=== PATIENT | male | born 1960 | race Caucasian/White ===

== ENCOUNTER → 2020-01-12 10:43 | Outpatient (BNVA) | payer OTHER, SELFPAY | PROVIDERS: PCP Nurse Practitioner Family; Referring Provider Nurse Practitioner Family; Visit Provider Physician Assistant | DX: K52.9 Noninfective gastroenteritis and colitis, unspecified (principal) | CPT/HCPCS: 99212 ==

== ENCOUNTER → 2020-02-22 09:40 | Outpatient (BNVA) | payer OTHER, SELFPAY | PROVIDERS: PCP Nurse Practitioner Family; Visit Provider Internal Medicine Gastroenterology | DX: Z76.89 Persons encountering health services in other specified circumstances (principal) ==

== ENCOUNTER → 2020-04-20 09:58 | Outpatient (BNVA) | payer OTHER, SELFPAY | PROVIDERS: PCP Nurse Practitioner Family; Visit Provider Physician Assistant ==

== ENCOUNTER → 2020-05-26 10:03 | Outpatient (BNVA) | payer OTHER, SELFPAY | PROVIDERS: PCP Nurse Practitioner Family; Visit Provider Internal Medicine Gastroenterology ==

== ENCOUNTER → 2020-06-12 10:11 | Outpatient (BNVA) | payer OTHER, SELFPAY | PROVIDERS: Visit Provider Physician Assistant ==

== ENCOUNTER 2020-06-30 12:25 | Outpatient (REF) | payer OTHER, SELFPAY ==
[2020-06-30 13:15] LABS: MANUAL DIFF FLAG NO
[2020-06-30 13:18] LABS: Basophils Percent Auto 0.2 % (0-2); Eosinophils Absolute Auto 0.1 X10*3/uL (0.0-0.4); Hematocrit 41.3 % (42-52); Hemoglobin 14.2 g/dl (14.0-18.0); Imm Gran Abs Auto 0.07 X10*3/uL (0.00-0.03); Imm Gran Pct Auto 0.8 % (0.0-0.4); Lymphocytes Absolute Auto 2.6 X10*3/uL (1.2-4.9); Lymphocytes Percent Auto 27.5 % (20-40); Mean Corpuscular HGB Conc 34.4 g/dl (31.0-36.0); Mean Corpuscular Volume 90.2 fL (80-98); Mean Platelet Volume 11.2 fL (9.4-12.4); Monocytes Absolute Auto 0.7 X10*3/uL (0.1-1.2); Monocytes Percent Auto 7.8 % (2-11); Neutrophils Absolute Auto 5.8 X10*3/uL (2.0-8.3); Neutrophils Percent Auto 62.7 % (45-73); Platelet Count 181 X10*3/uL (160-400); Red Blood Count 4.58 X10*6/uL (4.60-5.80); Red Cell Distribution Width 14.1 % (11.0-16.0); White Blood Count 9.3 X10*3/uL (4.8-10.8)
[2020-06-30 14:05] LABS: Thyroid Stimulating Hormone 0.54 uIU/mL (0.32-4.0)
[2020-06-30 14:06] LABS: Alanine Aminotransferase 29 U/L (0-40); Alkaline Phosphatase 106 U/L (39-117); Anion Gap 16 (12-20); Aspartate Amino Transferase 41 U/L (5-37); Bilirubin Total 0.5 mg/dL (0.0-1.0); Blood Urea Nitrogen 22 mg/dL (9-16); C Reactive Protein 0.08 mg/dL (< or = 0.50); Calcium 8.5 mg/dL (8.4-10.2); Carbon Dioxide 21 mmol/L (22-29); Chloride 109 mmol/L (96-108); Estimated Glomerular Filt Rate 57; Glucose Random 125 mg/dL (60-115); Lipase 37 U/L (8-78); Potassium 4.1 mmol/L (3.3-5.1); Sodium 142 mmol/L (135-145)
== END 2020-06-30 12:26 | disposition home or self-care (01) ==
LOC: HO.LAB 12:25
PROVIDERS: PCP Nurse Practitioner Family; Visit Provider Physician Assistant
DX: K52.9 Noninfective gastroenteritis and colitis, unspecified (principal); R74.01 Elevation of levels of liver transaminase levels; R10.11 Right upper quadrant pain; K59.09 Other constipation
CPT/HCPCS: 36415; 80053; 83690; 84443; 85025; 86140

== ENCOUNTER 2020-07-03 14:24 | Outpatient (REF) | payer OTHER, SELFPAY ==
--- NOTE | ~2020-07-03 | CT_ITS ---
EXAMINATION: CT ABDOMEN AND PELVIS WITH CONTRAST CLINICAL INFORMATION: Alcohol abuse COMPARISON: Previous abdominal ultrasound April 2019 TECHNIQUE: Multidetector volumetric images were obtained from the superior aspect of the liver through the pubic symphysis following administration 85 mL of Omnipaque 350 intravenous contrast. Sagittal and coronal reformatted images were obtained on the technologist's workstation. Oral contrast: Yes This CT examination was performed using dose optimization techniques as appropriate, variously including the following: *Automated exposure control *Adjustment of mA and/or kV according to patient size (this includes techniques or standardized protocols for targeted exams where dose is matched to indication/reason for exam; i.e. extremities or head) *Use of iterative reconstruction technique DLP: 268 mGy-cm FINDINGS: LUNG BASES: The visualized lung bases are unremarkable. LIVER, GALLBLADDER, AND BILIARY TREE: The liver is slightly low in attenuation suggestive of fatty infiltration. No evidence of cirrhosis is seen. There is a small 4 mm low-attenuation lesion in the junction of the medial segment of the left lobe and anterior segment of the right lobe axial image 15 series 3. Difficult to characterize due to small size but may represent a cyst. There is a 5 x 10 mm low-attenuation lesion in the right lobe of the liver near the gallbladder axial image 22 series 3. Hounsfield units are -2 suggestive of fat. This may represent invagination of fat along vessel. No suspicious liver lesion is seen. The gallbladder is normal. There is no biliary duct dilatation. PANCREAS: Unremarkable. SPLEEN: Unremarkable. ADRENAL GLANDS: Unremarkable. KIDNEYS AND URETERS: There are 3 left renal cysts, largest measuring 3 cm in the lower pole. There is a small 5 mm low-attenuation lesion in the lower pole of the right kidney also probably representing a cyst. The kidneys are otherwise unremarkable. BLADDER: Unremarkable. GASTROINTESTINAL TRACT: There is diverticulosis of the colon. No evidence of diverticulitis is seen. Small and large bowel is otherwise unremarkable. The stomach is not optimally distended. The ABDOMINAL WALL: No significant hernia is appreciated. LYMPH NODES: Normal. VASCULAR: There is evidence of severe atherosclerotic disease. Significant plaque seen in the lower abdominal aorta. No aneurysm is seen. PELVIC VISCERA: Unremarkable. OSSEOUS STRUCTURES: There are mild degenerative changes of the spine. CT/CT abdomen pelvis w con IMPRESSION: Low-attenuation liver suggestive of mild fatty infiltration. No evidence of cirrhosis. 2 small liver lesions, question representing a small cyst and area of fat. No suspicious liver lesion seen. Left renal cysts. Diverticulosis of the colon. Severe atherosclerotic disease.
[2020-07-03] MEDS: iohexoL 350 MG/ML 100 ML INFUS..BTL IV (15:14)
[2020-07-04 09:48] LABS: CDIFF Ag Negative (Negative); CDIFF Internal ctrl Dots and bkg OK (V); CDiff Toxin Negative (Negative)
[2020-07-09 21:46] LABS: Calprotectin, Fecal 193 mcg/g
[2020-07-12 01:26] LABS: Pancreatic Elastase-1 262 mcg/g
== END 2020-07-03 14:25 | disposition home or self-care (01) ==
LOC: HO.CT 14:24
PROVIDERS: Visit Provider Physician Assistant
DX: F10.10 Alcohol abuse, uncomplicated (principal); K52.9 Noninfective gastroenteritis and colitis, unspecified; R10.9 Unspecified abdominal pain
CPT/HCPCS: 74177; 82656; 83993; 87045; 87046; 87177; 87209; 87324; 87449; Q9967

== ENCOUNTER → 2020-07-11 13:41 | Outpatient (BNVA) | payer OTHER, SELFPAY | PROVIDERS: PCP Nurse Practitioner Family; Visit Provider Dietitian, Registered | DX: K31.84 Gastroparesis (principal) | CPT/HCPCS: 97802 ==

== ENCOUNTER → 2020-07-12 14:36 | Outpatient (BNVA) | payer OTHER, SELFPAY | PROVIDERS: PCP Nurse Practitioner Family; Visit Provider Physician Assistant ==

== ENCOUNTER → 2020-08-22 11:36 | Outpatient (BNVA) | payer OTHER, SELFPAY | PROVIDERS: PCP Nurse Practitioner Family; Visit Provider Dietitian, Registered | DX: K31.84 Gastroparesis (principal) | CPT/HCPCS: 97803 ==

== ENCOUNTER → 2020-08-29 11:36 | Outpatient (BNVA) | payer OTHER, SELFPAY | PROVIDERS: Visit Provider Physician Assistant ==

== ENCOUNTER → 2020-09-15 10:56 | Outpatient (BNVA) | payer OTHER, SELFPAY | PROVIDERS: PCP Nurse Practitioner Family; Visit Provider Internal Medicine Gastroenterology ==

== ENCOUNTER → 2021-03-19 10:51 | Outpatient (BNVA) | payer OTHER, SELFPAY | PROVIDERS: PCP Nurse Practitioner Family; Visit Provider Internal Medicine Gastroenterology | DX: K31.84 Gastroparesis (principal) | CPT/HCPCS: 99212 ==

== ENCOUNTER → 2021-05-28 13:31 | Outpatient (BNVA) | payer OTHER, SELFPAY | PROVIDERS: PCP Nurse Practitioner Family; Visit Provider Physician Assistant | DX: K31.84 Gastroparesis (principal); K52.9 Noninfective gastroenteritis and colitis, unspecified | CPT/HCPCS: 99212 ==

== ENCOUNTER → 2022-08-26 12:05 | Outpatient (BNVA) | payer OTHER, SELFPAY | PROVIDERS: PCP Nurse Practitioner Family; Visit Provider Physician Assistant | DX: K58.1 Irritable bowel syndrome with constipation (principal); K31.84 Gastroparesis | CPT/HCPCS: 99212 ==

== ENCOUNTER 2022-11-11 14:01 | Outpatient (REF) | payer OTHER, SELFPAY ==
--- NOTE | ~2022-11-11 | XR_ITS ---
EXAMINATION: XR LUMBOSACRAL SPINE WITH OBLIQUES CLINICAL INFORMATION: Spondylosis without myelopathy. COMPARISON: CT abdomen and pelvis July 2020. TECHNIQUE: AP, both oblique, and lateral views of the lumbar spine. Lateral view of the lumbosacral junction. FINDINGS: Vertebral bodies normally align. Multilevel degenerative disc changes manifested by endplate osteophytes without disc space narrowing. There are bilateral pars defects noted at L5 better visualized on the prior CT. The partially visualized pelvis including sacroiliac joints is normal. Vascular stent noted on the left in the pelvis. Prominent arterial calcification of the aorta and iliac vessels. XR/XR lumbar spine 4V min IMPRESSION: 1. Mild multilevel spondylosis of lumbosacral spine. 2. Bilateral L5 pars defects better visualized on prior CT.
--- NOTE | ~2022-11-11 | XR_ITS ---
EXAMINATION: XR BILATERAL HIPS WITH AP PELVIS CLINICAL INFORMATION: Pain in right hip. COMPARISON: CT abdomen and pelvis July 2020. TECHNIQUE: AP pelvis and AP and lateral views of each hip. FINDINGS: Right hip: The joint space is normal. Surrounding bone and soft tissues normal. Left hip: Chondrocalcinosis. Joint space normal. Surrounding bone and soft tissues normal. Pelvis: Hips as above. Remaining bone and joints of the pelvis normal. Left-sided vascular stent noted in the upper pelvis. Arterial calcification noted. XR/XR hip BI w PEL1V IMPRESSION: RIGHT HIP: Normal. LEFT HIP: Chondrocalcinosis. PELVIS: Calcific atherosclerotic disease. Vascular stent. Hips as above.
== END 2022-11-11 14:02 | disposition home or self-care (01) ==
LOC: HO.XRAY 14:01
PROVIDERS: PCP Nurse Practitioner Family; Visit Provider Nurse Practitioner Family
DX: M25.551 Pain in right hip (principal); M25.552 Pain in left hip; M47.816 Spondylosis without myelopathy or radiculopathy, lumbar region; M51.36 Other intervertebral disc degeneration, lumbar region; M16.11 Unilateral primary osteoarthritis, right hip
CPT/HCPCS: 72110; 73521; 99212

== ENCOUNTER 2022-11-11 14:01 | Outpatient (AMB) | payer MEDICAID, SELFPAY ==
--- NOTE | 2022-11-11 14:02 | MHC.OFFVIS ---
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 Patient denies any past or recent trauma, injury or falls. Reports upcoming follow up with Dr. Richards, Vascular provider regarding recurrence of left thigh bruising with history of surgical stenting repair after DVT 3-4 years ago. Patient also reports right foot drop, but does not use ankle AFO bracing daily, including today. His back pain is axial and also radiates into bilateral lateral hips, left hip worse than right. Pain is increased with prolonged walking, standing, climbing stairs and changing positions. Pain affects his daily activities and functioning, sleep, mobility, mood and quality of life. Patient reports he does not drive and has been walking long distances most of his past 40 years. Walking has been progressively getting worse for him, especially long distances and uphill walking. Pain is constant and rated at 8-10/10 on average for his back and hips. He also reports buttock pain with prolonged sitting, notably on hard surfaces. Denies any fever, weight loss, abdominal pain, weakness, bladder or bowel dysfunction or saddle anesthesia. Patient was previously seen by PMR in 2017 and Interventional Pain in 2018 with good relief from lumbar KEIRA. Per referral notes, prior imaging showed right hip with joint space narrowing and lumbar spine MRI with mild degenerative changes without evidence for nerve root impingement. Patient was referred to us for potential piriformis injection. Location Lower back and bilateral hips, left hip worse Duration Chronic pain for 4-5 years Characteristics of symptom or complaint Aching, dull, stiffness, spasming, heavy, throbbing Aggravating or associated factors Movements, walking, standing, changing positions Relieving factors Tramadol, gabapentin, heating pad, lidocaine patches, CBD oil Treatment PT- 4-5 years ago, minimally effective; lumbar KEIRA 2018-good relief [facility] Medical History (Updated 11/11/22 @ 20:55 by MCKENZIE Viramontes) History of DVT of lower extremity Right peroneal nerve palsy JOÃO (obstructive sleep apnea) Gouty arthritis Alcoholic gastritis History of fall COPD (chronic obstructive pulmonary disease) History of compression fracture of spine Cervical spine arthritis Bipolar depression Aortic calcification Abdominal pain Irritable Gastritis Hepatitis C Tremors of nervous system Hypothyroid Hypomania Hyperlipidemia Migraine Sleep apnea HTN (hypertension) Chronic diarrhea IBS (irritable bowel syndrome) Anxiety Surgical History Hx of foot operation History of esophagogastroduodenoscopy (EGD) H/O colonoscopy Family History Father COPD (chronic obstructive pulmonary disease) Mother Heart problem Social History (Updated 11/11/22 @ 14:11 by Inessa Liu) Household Members: Friend(s) and Other Household Members Other:: single, lives alone Alcohol intake: current Alcohol intake frequency: a few times a week Alcohol type: hard liquor Patient Tobacco Use Status: Current everyday Tobacco user Cigarette Packs Per Day: 0.5 Cigarettes Per Day: 10 Substance Use Type: Marijuana Current occupational status: disabled Review of Systems Const All systems reviewed & are unremarkable except as noted in HPI and below Physical Exam Vital Signs: Last Vital Signs Pulse 76 11/11/22 14:10 BP 136/92 H 11/11/22 14:10 Pulse Ox 95 11/11/22 14:10 Oxygen Delivery Method Room Air 11/11/22 14:10 BMI result Body Mass Index 20.7 General: Appears afebrile. Alert and oriented. Mood and affect appropriate. Follows and participates in conversation appropriately. Respiratory effort is unlabored. No cough. Able to transition from sit to stand unassisted. General: Yes no CVA tenderness Back/Spine/Pelvis Other: Mild midline tenderness overlying lower lumbar spinous processes. Mild tenderness to palpation around the left and right sacroiliac joints. Lumbar flexion and extension reproduce moderate pain with facet loading positive, L>R. 4/5 left and 5/5 quadriceps strength. Right foot drop, no ankle bracing. Antalgic gait with mild limping. Multiple bruising various healing stages noted left anterior thigh. Normal scarring left groin. 2+ pedal pulses bilaterally. Seated straight leg rise with dorsiflexion negative bilaterally. +1 patellar and absent right and trace left Achilles reflexes bilaterally. Eusebio?s reproduces left lateral hip and groin pain. Piriformis test negative bilaterally. Pelvic compression and Stinchfield tests are negative bilaterally. Mild to moderate groin pain with I/E hip rotations bilaterally, left>right. Back: no CVA tenderness Cervical Spine: cervical ROM normal and No Cervical spine tenderness Thoracic/Lumbar Spine: thoracic and lumbar spine normal to inspection, No Thoracic/lumbar spine scar(s), Lasegue's sign negative, straight leg raise negative bilaterally, pain with thoraco-lumbar ROM, paraspinal muscle tenderness, No thoracic spinal tenderness and lumbar spinal tenderness at L4 and at L5 Pelvis: buttock tenderness bilaterally Sacroiliac joints: bilaterally nontender Results Reviewed Results Reviewed: CT/CT abdomen pelvis w con 07/03/20 OSSEOUS STRUCTURES: There are mild degenerative changes of the spine. Assessment & Plan Assessment & Plan (1) Bilateral hip pain: Code(s): M25.551 - Pain in right hip; M25.552 - Pain in left hip (2) Lumbar spondylosis: Code(s): M47.816 - Spondylosis without myelopathy or radiculopathy, lumbar region (3) Lumbar degenerative disc disease: Code(s): M51.36 - Other intervertebral disc degeneration, lumbar region (4) Osteoarthritis of right hip: Code(s): M16.11 - Unilateral primary osteoarthritis, right hip Plan Lumbar spine and bilateral hip with pelvic view imaging to assess degree of degenerative changes, any subluxation, listhesis or pars defects. Discussed interventional and non-opioid medical treatments for short and half-way pain management with patient. Patient is interested to undergo bilateral hip injections as first steps to alleviate his most troublesome pain generator and improve mobility and increase walking tolerance. He may continue current medication regime of tramadol, gabapentin and lidocaine patches prescribed by his PCP provider. All questions and concerns have been answered and patient agreed with the plan. Follow up for xray results and sooner if needed. Orders: Orders XR hip BI w PEL1V 11/11/22 M25.551 - Pain in right hip, M25.552 - Pain in left hip XR lumbar spine 4V min 09/11/23 M25.551 - Pain in right hip, M25.552 - Pain in left hip, M47.816 - Spondylosis without myelopathy or radiculopathy, lumbar region Coding Level of Care Code New Pt Level 4 (75810) Diagnoses Bilateral hip pain M25.551; M25.552 Lumbar spondylosis M47.816 Lumbar degenerative disc disease M51.36 Osteoarthritis of right hip M16.11
[2022-11-11 14:10] VITALS: BP 136/92; PULSE 76; O2SAT 95; BMI 20.7
== END 2022-11-11 14:41 | disposition home or self-care (01) ==
PROVIDERS: PCP Nurse Practitioner Family; Visit Provider Nurse Practitioner Family
DX: M25.551 Pain in right hip (principal); M25.552 Pain in left hip; M47.816 Spondylosis without myelopathy or radiculopathy, lumbar region; M51.36 Other intervertebral disc degeneration, lumbar region; M16.11 Unilateral primary osteoarthritis, right hip
CPT/HCPCS: 99204

== ENCOUNTER → 2023-01-28 08:14 | Outpatient (BNVA) | payer OTHER, SELFPAY | PROVIDERS: PCP Nurse Practitioner Family; Visit Provider Nurse Practitioner Family | DX: M11.20 Other chondrocalcinosis, unspecified site (principal); M51.36 Other intervertebral disc degeneration, lumbar region; M47.816 Spondylosis without myelopathy or radiculopathy, lumbar region; M25.551 Pain in right hip; M25.552 Pain in left hip | CPT/HCPCS: 99212 ==

== ENCOUNTER 2023-01-28 13:43 | Outpatient (AMB) | payer MEDICAID, SELFPAY ==
[2023-01-28 13:57] VITALS: BP 159/82; PULSE 87; O2SAT 95
--- NOTE | 2023-01-28 13:57 | MHC.OFFVIS ---
Intake Vital Signs 01/28/23 13:57 Height 5 ft 7 in BP 159/82 H Blood Pressure Location Rt brachial Position Sitting Pulse 87 Pulse Source Pulse Oximeter Pulse Oximetry (%) 95 Oxygen Delivery Method Room Air Intake Visit Reasons: Left Thigh Pain - Ref by Padmini Lua/megan Intake Note: Pain today 12/10 Agricultural Research Technician Required: No Accompanied by: Self / Same As Patient Allergies No Known Allergies [No Known Allergies*] Allergy (Verified 01/28/23 13:58) HPI HPI Comments History of Present Illness Details Patient presents today for follow up to discuss lumbar spine and hip xray results. He reports mild low back pain and significant left thigh pain. Patient presents in no acute distress. He sits comfortably in the chair, crossing his legs, right over left, without any discomfort. He reports left thigh pain is constant dull, aching, and intermittently stabbing. His right hip xray is normal and left hip showed chondrocalcinosis. Joint space normal. Surrounding bone and soft tissues normal. Left-sided vascular stent noted in the upper pelvis. Arterial calcification noted. Patient has upcoming evaluation by Rheumatology provider on 02/04/23 for left hip chondrocalcinosis. He reports history of gout and has checked in to local ERs for gout attacks in the past. Patient reports he was on allopurinol for a long time in the past but not taking it currently. He also states he has colchicine at home but not sure if he should restart this. Patient will discuss this with Dr. Thornton on 02/04/23. Denies any fever, joint swelling, erythema, tenderness or rash. He presents with multiple bruising of upper and lower extremities and under left eye. Denies any recent trauma, injury or fall. Patient attributes bruising to taking Aspirin and Plavix on daily basis. PRIOR: Patient is a 62 years old male with complex past medical history including chronic low back pain and left upper extremity DVT with surgical repair presents today for initial evaluation of worsening low back pain and bilateral hip pain. Patient denies any past or recent trauma, injury or falls. Reports upcoming follow up with Dr. Richards, Vascular provider regarding recurrence of left thigh bruising with history of surgical stenting repair after DVT 3-4 years ago. Patient also reports right foot drop, but does not use ankle AFO bracing daily, including today. His back pain is axial and also radiates into bilateral lateral hips, left hip worse than right. Pain is increased with prolonged walking, standing, climbing stairs and changing positions. Pain affects his daily activities and functioning, sleep, mobility, mood and quality of life. Patient reports he does not drive and has been walking long distances most of his past 40 years. Walking has been progressively getting worse for him, especially long distances and uphill walking. Pain is constant and rated at 8-10/10 on average for his back and hips. He also reports buttock pain with prolonged sitting, notably on hard surfaces. Denies any fever, weight loss, abdominal pain, weakness, bladder or bowel dysfunction or saddle anesthesia. Patient was previously seen by PMR in 2017 and Interventional Pain in 2018 with good relief from lumbar KEIRA. Per referral notes, prior imaging showed right hip with joint space narrowing and lumbar spine MRI with mild degenerative changes without evidence for nerve root impingement. Patient was referred to us for potential piriformis injection. Location Lower back and bilateral hips, left hip worse Duration Chronic pain for 4-5 years Characteristics of symptom or complaint Aching, dull, stiffness, spasming, heavy, throbbing Aggravating or associated factors Movements, walking, standing, changing positions Relieving factors Tramadol, gabapentin, heating pad, lidocaine patches, CBD oil Treatment PT- 4-5 years ago, minimally effective; lumbar KEIRA 2018-good relief [facility] Medical History (Updated 12/19/22 @ 12:11 by MCKENZIE Viramontes) History of DVT of lower extremity Right peroneal nerve palsy JOÃO (obstructive sleep apnea) Gouty arthritis Alcoholic gastritis History of fall COPD (chronic obstructive pulmonary disease) History of compression fracture of spine Cervical spine arthritis Bipolar depression Aortic calcification Abdominal pain Irritable Gastritis Hepatitis C Tremors of nervous system Hypothyroid Hypomania Hyperlipidemia Migraine Sleep apnea HTN (hypertension) Chronic diarrhea IBS (irritable bowel syndrome) Anxiety Surgical History Hx of foot operation History of esophagogastroduodenoscopy (EGD) H/O colonoscopy Family History Father COPD (chronic obstructive pulmonary disease) Mother Heart problem Social History (Updated 11/11/22 @ 14:11 by Inessa Liu) Household Members: Friend(s) and Other Household Members Other:: single, lives alone Alcohol intake: current Alcohol intake frequency: a few times a week Alcohol type: hard liquor Patient Tobacco Use Status: Current everyday Tobacco user Cigarette Packs Per Day: 0.5 Cigarettes Per Day: 10 Substance Use Type: Marijuana Current occupational status: disabled Review of Systems Const All systems reviewed & are unremarkable except as noted in HPI and below Reports as per HPI, Denies body aches, Denies chills, Denies difficulty sleeping, Denies fatigue, Denies fever(s), Denies frequent falls, Denies lethargy, Denies malaise, Denies weakness and Denies weight loss Card Denies chest pain with activity, Denies palpitations and Denies dyspnea on exertion Resp Denies cough, Denies hemoptysis and Denies dyspnea on exertion GI Denies melena, Denies hematochezia, Denies constipation and Denies fecal incontinence Neuro Denies frequent falls and Denies weakness Endo Denies fatigue and Denies palpitations Physical Exam Vital Signs: Last Vital Signs Pulse 87 01/28/23 13:57 BP 159/82 H 01/28/23 13:57 Pulse Ox 95 01/28/23 13:57 Oxygen Delivery Method Room Air 01/28/23 13:57 General: Appears afebrile. Alert and oriented. Mood and affect appropriate. Follows and participates in conversation appropriately. Respiratory effort is unlabored. No cough. Able to transition from sit to stand unassisted. Back/Spine/Pelvis Cervical Spine: cervical ROM normal and No Cervical spine tenderness Thoracic/Lumbar Spine: thoracic and lumbar spine normal to inspection, No Thoracic/lumbar spine scar(s), Lasegue's sign negative, straight leg raise negative bilaterally, pain with thoraco-lumbar ROM, paraspinal muscle tenderness, No thoracic spinal tenderness and lumbar spinal tenderness at L4 and at L5 Pelvis: no buttock tenderness Sacroiliac joints: bilaterally nontender Skin General skin exam: no rashes or lesions noted, turgor decreased and other (multiple bruising-upper and lower extremities, left eye) Extrem General: Yes full ROM, Yes capillary refill normal, Yes no clubbing, cyanosis or edema and Yes no calf tenderness Results Reviewed Results Reviewed: XR LUMBOSACRAL SPINE WITH OBLIQUES 11/11/22 CLINICAL INFORMATION: Spondylosis without myelopathy. COMPARISON: CT abdomen and pelvis July 2020. TECHNIQUE: AP, both oblique, and lateral views of the lumbar spine. Lateral view of the lumbosacral junction. FINDINGS: Vertebral bodies normally align. Multilevel degenerative disc changes manifested by endplate osteophytes without disc space narrowing. There are bilateral pars defects noted at L5 better visualized on the prior CT. The partially visualized pelvis including sacroiliac joints is normal. Vascular stent noted on the left in the pelvis. Prominent arterial calcification of the aorta and iliac vessels. IMPRESSION: 1. Mild multilevel spondylosis of lumbosacral spine. 2. Bilateral L5 pars defects better visualized on prior CT. XR BILATERAL HIPS WITH AP PELVIS 11/11/22 CLINICAL INFORMATION: Pain in right hip. COMPARISON: CT abdomen and pelvis July 2020. TECHNIQUE: AP pelvis and AP and lateral views of each hip. FINDINGS: Right hip: The joint space is normal. Surrounding bone and soft tissues normal. Left hip: Chondrocalcinosis. Joint space normal. Surrounding bone and soft tissues normal. Pelvis: Hips as above. Remaining bone and joints of the pelvis normal. Left-sided vascular stent noted in the upper pelvis. Arterial calcification noted. IMPRESSION: RIGHT HIP: Normal. LEFT HIP: Chondrocalcinosis. PELVIS: Calcific atherosclerotic disease. Vascular stent. Hips as above. Assessment & Plan Assessment & Plan (1) Chondrocalcinosis: Code(s): M11.20 - Other chondrocalcinosis, unspecified site (2) Lumbar degenerative disc disease: Code(s): M51.36 - Other intervertebral disc degeneration, lumbar region (3) Lumbar spondylosis: Code(s): M47.816 - Spondylosis without myelopathy or radiculopathy, lumbar region (4) Bilateral hip pain: Code(s): M25.551 - Pain in right hip; M25.552 - Pain in left hip Plan Follow up with Dr. Richards at [facility] will follow up re: arterial and iliac calcifications. Left-sided vascular stent noted in the upper pelvis. Patient reports Tramadol provides him moderate analgesia, prescribed by his PCP. Patient is aware our office does not offer opioid prescribing. Recent hip xrays are normal except left hip chondrocalcinosis for which patient has pending Rheumatology evaluation on 02/04/[address] Thornton. Discussed interventional treatments for axial low back pain for potential peripheral nerve stimulation or RFA procedures. Patient reports his left thigh pain has been more troublesome at this time. All questions and concerns have been answered and patient agreed with the plan. Follow up after Rheumatology evaluation and sooner as needed. Orders: Orders Complete Blood Count Auto Diff Today M11.20 - Other chondrocalcinosis, unspecified site Erythrocyte Sedimentation Rate Today M11.20 - Other chondrocalcinosis, unspecified site Rheumatoid Factor Today M11.20 - Other chondrocalcinosis, unspecified site Uric Acid Today M11.20 - Other chondrocalcinosis, unspecified site Coding Level of Care Code Est Pt Level 4 (11452) Diagnoses Chondrocalcinosis M11.20 Lumbar degenerative disc disease M51.36 Lumbar spondylosis M47.816 Bilateral hip pain M25.551; M25.552
== END 2023-01-28 14:22 | disposition home or self-care (01) ==
PROVIDERS: PCP Nurse Practitioner Family; Visit Provider Nurse Practitioner Family
DX: M11.20 Other chondrocalcinosis, unspecified site (principal); M51.36 Other intervertebral disc degeneration, lumbar region; M47.816 Spondylosis without myelopathy or radiculopathy, lumbar region; M25.551 Pain in right hip; M25.552 Pain in left hip
CPT/HCPCS: 99214

== ENCOUNTER 2023-02-04 08:39 | Outpatient (AMB) | payer OTHER, SELFPAY ==
--- NOTE | 2023-02-04 08:41 | MHC.OFFVIS ---
Intake Vital Signs 02/04/23 08:43 Height 5 ft 7 in Weight 150 lb 5.684 oz BMI 23.5 BP 136/84 Blood Pressure Location Rt brachial Position Sitting Pulse 93 Pulse Source Pulse Oximeter Pulse Oximetry (%) 99 Oxygen Delivery Method Room Air Intake Visit Reasons: Bl Hip Pain Intake Note: New patient presents today for consult, referred by pain mgmt. C/o bilateral hip pain, lower back and right arm pain. Pain started several years ago. No accidents or falls. Has tried Tramadol but he gets no relief from it. He's also had 4 cortizone shots with short term relief to pain. Lead Nurse Required: No Accompanied by: Self / Same As Patient Allergies No Known Allergies [No Known Allergies*] Allergy (Verified 02/04/23 08:49) Medication List - Last Reconciled 02/04/23 by Julienne Pryor MD albuterol sulfate 90 mcg/actuation 2 puffs inhalation Q4-6H PRN allopurinol 300 mg PO DAILY aspirin 81 mg PO DAILY atorvastatin 10 mg PO DAILY bisacodyl (Dulcolax (bisacodyl)) 10 mg (2 x 5 mg) PO ONCE 1 day clonazepam 1 mg PO DAILY clonidine HCl 0.1 mg PO BEDTIME clopidogrel 75 mg PO DAILY diclofenac sodium 1% topical dicyclomine 10 mg PO TID famotidine 40 mg PO DAILY folic acid 1 mg PO DAILY gabapentin 100 mg PO DAILY gabapentin 300 mg PO TID hydroxyzine HCl 50 mg PO QID PRN hyoscyamine sulfate 0.125 mg sublingual TID PRN 30 days levothyroxine 75 mcg PO DAILY lidocaine 5% 1 patch topical DAILY PRN melatonin 5 mg PO BEDTIME meloxicam 7.5 mg PO DAILY PRN metoprolol succinate ER 50 mg PO DAILY mirtazapine 45 mg PO DAILY mirtazapine mg PO multivitamin 1 tab PO DAILY omeprazole 20 mg PO DAILY omeprazole 40 mg PO DAILY polyethylene glycol 3350 (Miralax) 238 grams PO ONCE 1 day propranolol 10 mg PO BID protein (Ensure High Protein oral powder) ea PO prucalopride (Motegrity) 1 mg PO DAILY quetiapine 400 mg PO BEDTIME sennosides-docusate sodium 8.6-50 mg (Stimulant Laxative Plus) tabs PO thiamine HCl (vitamin B1) 100 mg PO DAILY tramadol 50 mg PO BID PRN HPI HPI Comments History of Present Illness Details This is a 62-year-old male who was referred by Pain Management for evaluation of chondrocalcinosis. Chondrocalcinosis was incidentally found on his left hip x-rays. Patient states that he had not onset of right foot pain and swelling about 5 years ago, he had to go to the emergency room for treatment. He had another attack shortly after. He was diagnosed with gout. He states that he was prescribed allopurinol to use as needed for flare-ups. Has not had any similar attacks since then. States that he has low back pain and bilateral hip pain. He received steroid injections in his back in the past with short-lived relief. He has history of hypothyroidism and is on levothyroxine. There is no history of hyperpigmentation. There is no known history of an autoimmune rheumatic disease. [facility] Medical History History of DVT of lower extremity Right peroneal nerve palsy JOÃO (obstructive sleep apnea) Gouty arthritis Alcoholic gastritis History of fall COPD (chronic obstructive pulmonary disease) History of compression fracture of spine Cervical spine arthritis Bipolar depression Aortic calcification Abdominal pain Irritable Gastritis Hepatitis C Tremors of nervous system Hypothyroid Hypomania Hyperlipidemia Migraine Sleep apnea HTN (hypertension) Chronic diarrhea IBS (irritable bowel syndrome) Anxiety Surgical History Hx of foot operation History of esophagogastroduodenoscopy (EGD) H/O colonoscopy Family History Father COPD (chronic obstructive pulmonary disease) Mother Heart problem Sister Muscular dystrophy Social History Household Members: Friend(s) and Other Household Members Other:: single, lives alone Alcohol intake: current Alcohol intake frequency: a few times a week Alcohol type: hard liquor Patient Tobacco Use Status: Current everyday Tobacco user Cigarette Packs Per Day: 0.5 Cigarettes Per Day: 10 Substance Use Type: Marijuana Current occupational status: disabled Review of Systems Musc Reports back pain, Reports arthralgias and Reports stiffness Physical Exam Vital Signs: Last Vital Signs Pulse 93 02/04/23 08:43 BP 136/84 02/04/23 08:43 Pulse Ox 99 02/04/23 08:43 Oxygen Delivery Method Room Air 02/04/23 08:43 BMI result Body Mass Index 23.5 Const General: cooperative, healthy appearing and comfortable Nutritional Appearance: average body habitus Orientation/consciousness: patient oriented x3 Limitations: no limitations HEENT Head: Yes normocephalic and Yes atraumatic Mouth: moist mucous membranes Resp Effort & Inspection: normal respiratory effort and able to speak in complete sentences Skin General skin exam: no rashes or lesions noted Neuro General: patient oriented x3 Extrem Other: No active synovitis Normal range of motion of elbows, shoulders. No groin pain with flexion adduction and external rotation of both hips Negative straight leg raise test bilaterally Results Reviewed Results Reviewed: XR LUMBOSACRAL SPINE WITH OBLIQUES 11/11/22 CLINICAL INFORMATION: Spondylosis without myelopathy. COMPARISON: CT abdomen and pelvis July 2020. TECHNIQUE: AP, both oblique, and lateral views of the lumbar spine. Lateral view of the lumbosacral junction. FINDINGS: Vertebral bodies normally align. Multilevel degenerative disc changes manifested by endplate osteophytes without disc space narrowing. There are bilateral pars defects noted at L5 better visualized on the prior CT. The partially visualized pelvis including sacroiliac joints is normal. Vascular stent noted on the left in the pelvis. Prominent arterial calcification of the aorta and iliac vessels. IMPRESSION: 1. Mild multilevel spondylosis of lumbosacral spine. 2. Bilateral L5 pars defects better visualized on prior CT. XR BILATERAL HIPS WITH AP PELVIS 11/11/22 CLINICAL INFORMATION: Pain in right hip. COMPARISON: CT abdomen and pelvis July 2020. TECHNIQUE: AP pelvis and AP and lateral views of each hip. FINDINGS: Right hip: The joint space is normal. Surrounding bone and soft tissues normal. Left hip: Chondrocalcinosis. Joint space normal. Surrounding bone and soft tissues normal. Pelvis: Hips as above. Remaining bone and joints of the pelvis normal. Left-sided vascular stent noted in the upper pelvis. Arterial calcification noted. IMPRESSION: RIGHT HIP: Normal. LEFT HIP: Chondrocalcinosis. PELVIS: Calcific atherosclerotic disease. Vascular stent. Hips as above. Assessment & Plan Assessment & Plan (1) Chondrocalcinosis: Code(s): M11.20 - Other chondrocalcinosis, unspecified site Plan: This is a 62-year-old male who is referred by Pain Management for evaluation of left hip chondrocalcinosis. Chondrocalcinosis was found incidentally on left hip x-rays. There are symptoms suggestive of pseudogout. Patient had a couple of abrupt episodes of right foot pain and swelling 5 years ago and was diagnosed with gout. Has not had any attacks since. Patient has symptoms suggestive of degenerative arthritis. Chondrocalcinosis is essentially a feature of osteoarthritis. It generally does not require specific treatment unless patient has features of pseudogout. No further workup is needed at this time. Follow-up as needed Plan I spent 25 minutes reviewing patient's chart, evaluating patient, counseling patient and documenting in the chart Coding Level of Care Code New Pt Level 3 (91907) Diagnoses Chondrocalcinosis M11.20
[2023-02-04 08:43] VITALS: BP 136/84; PULSE 93; O2SAT 99; BMI 23.5
== END 2023-02-04 10:06 | disposition home or self-care (01) ==
PROVIDERS: PCP Nurse Practitioner Family; Visit Provider Student in an Organized Health Care Education/Training Program
DX: M11.20 Other chondrocalcinosis, unspecified site (principal)
CPT/HCPCS: 99203

== ENCOUNTER → 2023-02-04 08:39 | Outpatient (BNVA) | payer OTHER, SELFPAY | PROVIDERS: PCP Nurse Practitioner Family; Visit Provider Student in an Organized Health Care Education/Training Program | DX: M11.252 Other chondrocalcinosis, left hip (principal); M25.551 Pain in right hip; M25.552 Pain in left hip | CPT/HCPCS: 99202 ==